=== PATIENT | female | born 1960 | race African-American/Black ===

== ENCOUNTER 2016-04-30 12:48 | Emergency (ER) | payer MEDICAID | END 2016-04-30 17:18 | disposition home or self-care (01) | LOC: D.ER 12:48 | DX: S20.219A Contusion of unspecified front wall of thorax, initial encounter (principal); Y93.83 Activity, rough housing and horseplay; Y93.89 Activity, other specified; Y92.019 Unspecified place in single-family (private) house as the place of occurrence of the external cause; I10 Essential (primary) hypertension ==

== ENCOUNTER 2016-08-04 22:21 | Emergency (ER) | payer MEDICAID ==
[2016-08-05 06:13] LABS: BASOPHILS 0.2 % (0.0-2.0); EOSINOPHILS 0.2 % (0-7); HEMATOCRIT 40.2 % (36.0-48.0); HEMOGLOBIN 14.1 g/dL (12-16); IMMATURE GRANULOCYTES 0.2 % (0-5); LYMPHOCYTES 29.2 % (15-50); MCH 32.6 pg (26.0-34.0); MCHC 35.1 g/dL (31.0-37.0); MCV 93.1 fL (80.0-100.0); MEAN PLATELET VOLUME 9.6 fL (7.4-10.4); NEUTROPHILS 65.2 % (40-80); PLATELET COUNT 234 10x3/uL (130-400); RBC 4.32 10x6/uL (4.00-5.40); RDW 13.1 % (11.5-14.5); WBC 8.1 10x3/uL (4.8-10.8)
[2016-08-05 06:15] LABS: ALBUMIN 3.7 g/dL (3.4-5.0); ALKALINE PHOSPHATASE 136 U/L (46-116); ALT (SGPT) 32 U/L (10-68); BILIRUBIN - TOTAL 0.35 mg/dL (0.2-1.3); CALC OSMOLALITY 277 mosm/kg (275-300); CALCIUM 8.9 mg/dL (8.5-10.1); CARBON DIOXIDE 25.8 mmol/L (21.0-32.0); CHLORIDE - SERUM 99 mmol/L (98-107); CKMB 1.2 U/L (0.0-3.6); CREATINE KINASE 163 UL (21-215); CREATININE - SERUM 0.9 mg/dL (0.6-1.3); GLUCOSE 214 mg/dL (74-106); POTASSIUM - SERUM 3.3 mmol/L (3.5-5.1); PROTEIN - SERUM 7.9 g/dL (6.4-8.2); SODIUM 137 mmol/L (136-145); TROPONIN-I < 0.017 ng/mL (0.000-0.060); UREA NITROGEN 8 mg/dL (7-18); eGFR NON AFRICAN AMERICAN 69 mL/min (90-120)
== END 2016-08-05 01:15 | disposition home or self-care (01) ==
LOC: D.ER 22:21
PROVIDERS: Emergency Medicine
DX: R07.89 Other chest pain (principal); M94.0 Chondrocostal junction syndrome [Tietze]; E11.65 Type 2 diabetes mellitus with hyperglycemia; I10 Essential (primary) hypertension; F17.200 Nicotine dependence, unspecified, uncomplicated; R00.0 Tachycardia, unspecified; I45.10 Unspecified right bundle-branch block; I44.60 Unspecified fascicular block

== ENCOUNTER 2017-08-08 23:03 | Emergency (ER) | payer MEDICAID | END 2017-08-09 01:38 | disposition home or self-care (01) | LOC: D.ER 23:03 | DX: I10 Essential (primary) hypertension (principal); Z91.19 Patient's noncompliance with other medical treatment and regimen; E11.9 Type 2 diabetes mellitus without complications; F17.200 Nicotine dependence, unspecified, uncomplicated ==